=== PATIENT | female | born 1960 | race Caucasian/White ===

== ENCOUNTER 2024-11-01 10:09 | Outpatient (CLI) | payer MEDICARE | END 2024-11-01 10:10 | disposition home or self-care (01) | LOC: BICCT 10:09 | PROVIDERS: ATTEND Orthopaedic Surgery | DX: T84.50XD Infection and inflammatory reaction due to unspecified internal joint prosthesis, subsequent encounter (principal); Z96.612 Presence of left artificial shoulder joint; R59.0 Localized enlarged lymph nodes; Z47.1 Aftercare following joint replacement surgery | CPT/HCPCS: 36415; 85025; 86140 ==